=== PATIENT | female | born 1970 | race Caucasian/White ===

== ENCOUNTER → 2017-09-02 | Outpatient (CLI) | payer BC ==
[2015-12-27 22:31] VITALS: BP 133/76
--- NOTE | 2017-09-05 10:02 | RAD ---
DATE: September 02, 2017 EXAM: MAMMO SHIRLEY SCREENING BILATERAL HISTORY: Screening study. COMPARISON: March 26, 2016 This study was interpreted with the benefit of Computerized Aided Detection (CAD). 2-D digital mammographic views of both breasts were performed in the CC and MLO projections. 3-D digital tomosynthesis of both breasts were performed in the CC and MLO projections and reviewed on a computer workstation. FINDINGS: The breast parenchyma is heterogeneously dense. There are no dominant suspicious masses, suspicious microcalcifications or evidence of architectural distortion. IMPRESSION: No mammographic indicators for malignancy. BI-RADS CATEGORY: 1 NEGATIVE RECOMMENDED FOLLOW-UP: 12M 12 MONTH FOLLOW-UP PQRS compliance statement: Patient information was entered into a reminder system with a target due date September 03, 2018 for the next mammogram. Mammography is a sensitive method for finding small breast cancers, but it does not detect them all and is not a substitute for careful clinical examination. A negative mammogram does not negate a clinically suspicious finding and should not result in delay in biopsying a clinically suspicious abnormality. "Our facility is accredited by the [employer] Mammography [employer]." The patient's breast density may affect the ability of mammography to detect breast cancer. There are 4 categories of breast density, A, B, C and D. Breast density A means that most of the breast tissue is replaced with adipose tissue and therefore is not dense. Breast density B means that the breast tissue is mildly dense and scattered. Breast density C means that the breast tissue is heterogeneously dense. Breast density D means that the breast tissue is very dense. Breast densities especially C and D may decrease the sensitivity of mammography to detect breast cancer. Therefore, the patient may benefit from 3-D breast mammography (3D breast tomography) as a part of their screening mammogram. Insurance may or may not pay for this additional imaging. The patient's breast density based on today's mammogram is category C.
== END | disposition home or self-care (01) ==
LOC: MAMMO 13:56
PROVIDERS: ATTEND Obstetrics & Gynecology
DX: Z12.31 Encounter for screening mammogram for malignant neoplasm of breast (principal)
CPT/HCPCS: 77063; 77067

== ENCOUNTER 2018-06-15 08:21 | Emergency (ER) | payer OTHER, BC ==
[~2018-06-15] VITALS: Ht 170.2 cm; Wt 74.8 kg
[2018-06-15] MEDS ORDERED: NAPROXEN 500 MG TABLET PO ONE (09:00)
--- NOTE | 2018-06-15 09:27 | RAD ---
History: Fall today. Neck and right scapular pain. Comparison: March 27, 2005. Findings: AP, lateral, and the mouth odontoid views of the cervical spine. No acute fracture or acute malalignment is identified. No prevertebral soft tissue swelling is seen. No significant degeneration is seen. Impression: No acute osseous abnormality identified. Electronically signed by: Laron Giron MD (06/15/2018 9:23 AM) [facility]
--- NOTE | 2018-06-15 09:31 | RAD ---
3 views of the right scapula HISTORY: History of fall, pain COMPARISON: None available. Findings/ impression: No evidence of obvious displaced fracture of the scapula identified. The visualized acromioclavicular joint, glenohumeral joint grossly appears unremarkable. Electronically signed by: Jermain Aragon MD (06/15/2018 9:28 AM) [id number]
[2018-06-15] MEDS ORDERED: CYCL-331 PO (09:42)
[2018-06-15] MEDS ORDERED: NAPR-683 PO (09:42)
--- NOTE | 2018-06-15 09:42 | PHYS DOC ---
Past History Past Medical History: Other Past Surgical History: Other Smoking: Non-smoker Alcohol Use: None Drug Use: None Adult General Chief Complaint Chief Complaint: MECHANICAL FALL HPI HPI Patient is a 48 year old female who presents with complaining of a fall on ice. Patient states she had a fall on ice yesterday at her work and landed on her right side without head injury or loss of consciousness. Patient complaining of pain in her neck and right shoulder and upper back and right hip that gradually getting worse and this morning decided to go to a chiropractor but instructed to come to emergency room regarding work related injury. Patient rated her pain 5/10 and denies focal neuro deficit, nausea and vomiting, headache, fever and chills. Review of Systems Review of Systems Constitutional: Denies fever or chills [] Eyes: Denies change in visual acuity, redness, or eye pain [] HENT: Denies nasal congestion or sore throat [] Respiratory: Denies cough or shortness of breath [] Cardiovascular: No additional information not addressed in HPI [] GI: Denies abdominal pain, nausea, vomiting, bloody stools or diarrhea [] : Denies dysuria or hematuria [] Musculoskeletal: Reports back pain and joint pain Integument: Denies rash or skin lesions [] Neurologic: Denies headache, focal weakness or sensory changes [] Endocrine: Denies polyuria or polydipsia [] All other systems were reviewed and found to be within normal limits, except as documented in this note. Current Medications Current Medications Current Medications Medications (Trade) Dose Ordered Sig/[facility] Start Time Stop Time Status Last Admin Dose Admin Naproxen (Naprosyn) 500 mg 1X ONCE 06/15/18 09:00 06/15/18 09:01 DC 06/15/18 08:52 500 MG Allergies Allergies Allergies Coded Allergies Type Severity Reaction Last Updated Verified No Known Drug Allergies 12/27/15 No Physical Exam Physical Exam Constitutional: Well developed, well nourished, mild distress, non-toxic appearance. [] HENT: Normocephalic, atraumatic. Eyes: PERRLA, EOMI, conjunctiva normal, no discharge. [] Neck: Painful range of motion, no midline tenderness, supple, no stridor. [] Cardiovascular:Heart rate regular rhythm, no murmur [] Lungs & Thorax: Bilateral breath sounds clear to auscultation [] Abdomen: Bowel sounds normal, soft, no tenderness, no masses, no pulsatile masses. [] Skin: Warm, dry, no erythema, no rash, contusion of right shoulder and right thigh. [] Back: No tenderness, no CVA tenderness. [] Extremities: Right shoulder with small contusion without deformity, painful range of motion, right hip without deformity or tenderness, no cyanosis, no clubbing, no edema. [] Neurologic: Alert and oriented X 3, normal motor function, normal sensory function, no focal deficits noted. [] Psychologic: Affect normal, judgement normal, mood normal. [] Current Patient Data Vital Signs Vital Signs Date Time Temp Pulse Resp B/P (MAP) Pulse Ox O2 Delivery O2 Flow Rate FiO2 06/15/18 08:21 98.5 59 18 99 Room Air EKG EKG [] Radiology/Procedures Radiology/Procedures [address] [address] IMAGING REPORT Signed PATIENT: BRICE FLOWERS ACCOUNT: [id number] : 1970 LOCATION: ER AGE: 48 SEX: F EXAM STATUS: REG ER ORD. PHYSICIAN: LARON SOLIS MD REASON: fall PROCEDURE: CERVICAL SPINE 2-3V History: Fall today. Neck and right scapular pain. Comparison: March 27, 2005. Findings: AP, lateral, and the mouth odontoid views of the cervical spine. No acute fracture or acute malalignment is identified. No prevertebral soft tissue swelling is seen. No significant degeneration is seen. Impression: No acute osseous abnormality identified. Electronically signed by: Laron Muro MD (06/15/2018 9:23 AM) [id number] DICTATED AND SIGNED BY: LARON MURO MD DATE: 06/15/18 0922 CC: LARON SOLIS MD; JASMIN RICHEY MD ~ Course & Med Decision Making Course & Med Decision Making Pertinent Imaging studies reviewed. (See chart for details) Evaluation of patient in ER showed 48-year-old female patient with a fall on ice yesterday without loss of consciousness. Patient had contusion of right shoulder and right hip with unremarkable x-ray of cervical spine and scapular. Plan discharge patient home with shoulder cervical strain and instruction to apply ice. Prescription for Naprosyn and Flexeril was given. Feliciaon Disclaimer Madi Disclaimer This electronic medical record was generated, in whole or in part, using a voice recognition dictation system. Departure Departure: Impression: Primary Impression: Right shoulder strain Additional Impressions: Acute cervical myofascial strain Fall due to ice or snow Contusion of thigh, right Disposition: 01 HOME, SELF-CARE (at 0939) Condition: IMPROVED Referrals: JASMIN RICHEY MD (PCP) Patient Instructions: Cervical Sprain, Contusion, Shoulder Sprain Additional Instructions: Drink plenty of liquids Follow-up with your primary care physician in 3-5 days Return to ER if not getting better Apply ice on the affected area Scripts Naproxen (NAPROSYN) 500 Mg Tablet 500 MG PO BID for pain, #20 TAB Prov: LARON SOLIS MD 06/15/18 Cyclobenzaprine Hcl (CYCLOBENZAPRINE HCL) 10 Mg Tablet 1 TAB PO TID for pain, #30 TAB Prov: LARON SOLIS MD 06/15/18 Problem Qualifiers LARON SOLIS MD Jun 15, 2018 09:42
[2018-06-15 09:43] VITALS: BP 115/78
== END 2018-06-15 09:50 | disposition home or self-care (01) ==
LOC: ER 08:21
DX: S16.1XXA Strain of muscle, fascia and tendon at neck level, initial encounter (principal); S46.911A Strain of unspecified muscle, fascia and tendon at shoulder and upper arm level, right arm, initial encounter; S70.11XA Contusion of right thigh, initial encounter; W00.0XXA Fall on same level due to ice and snow, initial encounter; Y93.89 Activity, other specified; Y92.89 Other specified places as the place of occurrence of the external cause; Y99.8 Other external cause status
CPT/HCPCS: 72040; 73010; 99283

== ENCOUNTER → 2020-07-01 | Outpatient (CLI) | payer BC ==
[~2020-07-01] MED LIST: CYCL-331 PO; NAPR-683 PO
--- NOTE | 2020-07-01 15:10 | RAD ---
DATE: 07/01/2020 10:33 AM EXAM: DIGITAL SCREEN BILAT W/CAD HISTORY: Screening COMPARISON: 09/02/2017, 07/08/2015 Bilateral CC and MLO views of the breasts were performed. Bilateral breast tomosynthesis was performed in CC and MLO projections. This study was interpreted with the benefit of Computerized Aided Detection (CAD). FINDINGS: Breast Density: DENSE The breast Parenchyma is dense, which could reduce the sensitivity of mammography. Breast parenchyma level density D. A benign biopsy marker in the inferior left breast and more posteriorly, a cluster of punctate calcifications in the inferior medial middle depth are stable from 2014 and consistent with benign findings. No suspicious masses, microcalcifications or architectural distortion is present to suggest malignancy in either breast. The visualized axillae are unremarkable. IMPRESSION: No mammographic evidence of malignancy. BI-RADS CATEGORY: 2 BENIGN FINDING(S) RECOMMENDED FOLLOW-UP: 12M 12 MONTH FOLLOW-UP Annual screening mammography is recommended, unless clinically indicated sooner based on symptoms or change in physical exam. PQRS compliance statement: Patient information was entered into a reminder system with a target due date for the next mammogram. Mammography is a sensitive method for finding small breast cancers, but it does not detect them all and is not a substitute for careful clinical examination. A negative mammogram does not negate a clinically suspicious finding and should not result in delay in biopsying a clinically suspicious abnormality. "Our facility is accredited by the [employer] Mammography Program."
== END ==
LOC: MAMMO 09:16
PROVIDERS: ATTEND Specialist
DX: Z12.31 Encounter for screening mammogram for malignant neoplasm of breast (principal)
CPT/HCPCS: 77067

== ENCOUNTER → 2021-05-21 | Outpatient (CLI) | payer BC ==
[~2021-05-21] MED LIST changes: -CYCL-331 PO; +CYCL10TA19 PO
--- NOTE | 2021-05-21 16:40 | RAD ---
EXAM: XR ABDOMEN 2V 05/21/2021 12:50 PM CLINICAL INDICATION: Bowel incontinence, cramping, diarrhea COMPARISON: None TECHNIQUE: AP supine view of the abdomen FINDINGS: Bowel gas pattern is nonspecific and nonobstructive. There is a normal volume of stool. No abnormal calcifications. No acute osseous abnormality. IMPRESSION: Unremarkable abdominal radiograph. No acute abnormality. Electronically signed by: Ronna Mitchell MD (05/21/2021 4:38 PM) [id number]
== END ==
LOC: RAD 12:38
PROVIDERS: ATTEND Specialist
DX: R19.7 Diarrhea, unspecified (principal); R10.9 Unspecified abdominal pain; R15.9 Full incontinence of feces
CPT/HCPCS: 74019